=== PATIENT | female | born 1950 | race Caucasian/White ===

== ENCOUNTER 2018-11-28 07:06 | Emergency (ER) | payer MEDICARE, BC ==
[2018-11-28 07:21] VITALS: BP 138/81
--- NOTE | 2018-11-28 08:09 | UC ---
Head Injury HPI - HPI Summary HPI Summary: 68-year-old female comes in with a chief complaint of headache and facial pain and neck pain. Patient suffered an injury on October 30 where she was struck in the face and on the top of the head at her home when doing laundry and the cover of the laundry machine struck her on the face of the head. No loss of consciousness. Primary pain was on the bridge of her nose in the left frontal sinus area and on the top of her head. She's had craniosacral manipulation by her chiropractor and that did help. In the last day pain on top of her head as gotten worse. She's not taken any acetaminophen or ibuprofen. Laying down resting makes it better activity and worrying about it makes it worse. Denies any loss or change in vision or speech or any weakness or numbness. She describes the pain as a pressure and at its worst at about a 7 out of 10 right now it's a 3 out of 10. She does take a baby aspirin every day. Otherwise she' s not on any blood thinners. Patient does have neck pain which she says is fairly chronic condition but she feels it's worse since the injury. - History Of Current Complaint Chief Complaint: UCHeadInjury Stated Complaint: HEAD INJURY Time Seen by Provider: 11/28/18 07:40 Pain Intensity: 3 - Allergies/Home Medications Allergies/Adverse Reactions: Allergies Allergy/AdvReac Type Severity Reaction Status Date / Time No Known Allergies Allergy Verified 11/28/18 07:22 PMH/Surg Hx/FS Hx/Imm Hx Previously Healthy: Yes Endocrine History: Dyslipidemia Cardiovascular History: Hypertension, Myocardial Infarction - Surgical History Surgical History: Yes Surgery Procedure, Year, and Place: right torn meniscus 2000; - Family History Known Family History: Negative: Blood Disorder - Social History Alcohol Use: Daily Alcohol Amount: 1 Glass of wine Daily Substance Use Type: None Smoking Status (MU): Former Smoker - Immunization History Most Recent Influenza Vaccination: never Most Recent Tetanus Shot: 05/2011 Most Recent Pneumonia Vaccination: never Review of Systems All Other Systems Reviewed And Are Negative: Yes Constitutional: Positive: Negative Skin: Positive: Negative Eyes: Positive: Negative ENT: Positive: Other - SEE HPI Respiratory: Positive: Negative Cardiovascular: Positive: Negative Gastrointestinal: Positive: Negative Motor: Positive: Negative Neurovascular: Positive: Negative Musculoskeletal: Positive: Other: - SEE HPI Neurological: Positive: Headache Psychological: Positive: Negative Is Patient Immunocompromised?: No Physical Exam Triage Information Reviewed: Yes Appearance: Well-Appearing, No Pain Distress, Well-Nourished Vital Signs: Initial Vital Signs Temp 98 F 11/28/18 07:18 Pulse 80 11/28/18 07:18 Resp 18 11/28/18 07:18 BP 138/81 11/28/18 07:18 Pulse Ox 100 11/28/18 07:18 Vital Signs Reviewed: Yes Eyes: Positive: Conjunctiva Clear, Other: - PERRLA EOMI. No photophobia. No visual field deficit. ENT: Positive: TMs normal - No hemotympanum, Other - Face is no obvious deformities and is nontender to palpation Neck: Positive: Supple, Other: - Mild tenderness in the midline posterior Respiratory: Positive: Lungs clear, Normal breath sounds, No respiratory distress Cardiovascular: Positive: RRR Musculoskeletal: Positive: Strength Intact, ROM Intact Neurological: Positive: Alert, Muscle Tone Normal, Other: - No focal neurologic deficit Psychological: Positive: Age Appropriate Behavior Skin Exam: Normal Head Injury Course/Dx - Course Course Of Treatment: Patient Name: ALEXANDRIA GOMEZ Medical Record#: [id number] Ordering Physician: Lucius Lovelace MD Acct.#: [id number] : 1950 Age: 68 Sex: F Location: [facility] Exam Date: 11/28/18 075 ADM Status: [facility] ER Order Information: CT SPINE CERVICAL W/O Accession Number: [id number] CPT: [address]: [address] of the cervical spine was obtained in the axial plane. Sagittal and coronal reconstructed images were obtained. The skull base and straight no fracture. Mastoid air cells are well aerated. Degenerative changes of the atlantoaxial joint is noted. The vertebral bodies appear normal in height. Normal bone marrow signal is noted. At C2-C3 there is no disc protrusion. No central or foraminal stenosis is noted. At C3-C4 spondylitic ridge flattens the thecal sac. Right uncovertebral joint hypertrophy narrows the right foramen. At C4-C5 spondylitic ridge flattens the thecal sac. No central or foraminal stenosis is noted. At C5-C6 and C6-C7 degenerative disc disease is noted. Lung apices are unremarkable. No fracture is identified. IMPRESSION: Degenerative disc disease at C3-C4, C4-C5, C5-C6 and C6-C7 without evidence of fracture. Spinal canal appears intact. <Electronically signed by Grace Farrell MD in OV> 11/28/18 0846 Patient Name: ALEXANDRIA GOMEZ Medical Record#: [id number] Ordering Physician: Lucius Lovelace MD Acct.#: [id number] : 1950 Age: 68 Sex: F Location: [facility] Exam Date: 11/28/18750 ADM Status: REG ER Order Information: CT MAXILLOFACIAL W/O Accession Number: [id number] CPT: 50619 INDICATION: Facial trauma. COMPARISON: There are no relevant prior studies available for comparison. TECHNIQUE: Contiguous axial sections of the axial images of the facial bones were obtained and reconstructed in the coronal and sagittal planes. FINDINGS: The rodriguez of the orbits and maxillary sinuses appear intact. The zygomatic arches appear intact. There is no evidence for a fracture of the mandible. The nose is angulated toward the left side. No acute fracture is seen. There is moderate deviation of the nasal septum toward the right side. The pterygoid plates appear intact. The paranasal sinuses appear clear. IMPRESSION: NO EVIDENCE FOR ACUTE FRACTURE. <Electronically signed by Mark Morillo MD in OV> 11/28/18 0849 Patient Name: ALEXANDRIA GOMEZ Medical Record#: [id number] Ordering Physician: Lucius Lovelace MD Acct.#: [id number] : 1950 Age: 68 Sex: F Location: [facility] Exam Date: 11/28/18750 ADM Status: REG ER Order Information: CT BRAIN WO Accession Number: [id number] CPT: 07188 INDICATION: Head trauma COMPARISON: There are no relevant prior studies available for comparison. TECHNIQUE: Contiguous axial sections of the brain were obtained from the skull base to the vertex without contrast. FINDINGS: There is no hemorrhagic focus, mass effect or midline shift. Grossly, the kang- white matter differentiation is maintained. Mild periventricular hypoattenuation, without mass effect, is nonspecific. Mild cerebral volume loss is characterized by generalized ventriculomegaly and sulcal prominence. The basal cisterns are patent. There is no abnormal extra-axial collection. The globes and orbits are unremarkable. The paranasal sinuses and mastoid air cells are predominantly well aerated. IMPRESSION: No acute intracranial abnormality. Mild cerebral volume loss. Mild chronic small vessel ischemic disease is likely. <Electronically signed by Wayne Butcher MD in OV> 11/28/[address] results with the patient. I recommended ibuprofen as directed as needed. Patient will follow-up with her primary care physician. Could also follow up with sports medicine for potential concussion. She is to get reevaluated sooner with any difficulty with vision or speech or any neurologic symptoms unexplained vomiting or any questions or concerns. - Differential Dx/Diagnosis Provider Diagnosis: Concussion, Facial injury, Headache, Neck pain Discharge - Sign-Out/Discharge Documenting (check all that apply): Patient Departure All imaging exams completed and their final reports reviewed: Yes - Discharge Plan Condition: Stable Disposition: HOME Patient Education Materials: Cervical Strain (ED), Concussion (ED), Facial Contusion (ED) Referrals: Sherita Jolley MD [Primary Care Provider] - [facility] [Provider Group] Additional Instructions: FOLLOW UP WITH YOUR DOCTOR. GET RECHECKED SOONER IF YOUR CONDITION WORSENS; WEAKNESS, NUMBNESS, CHANGE IN VISION OR SPEECH, UNEXPLAINED VOMITING, PAIN, YOU FEEL ILL OR ANY QUESTIONS OR CONCERNS. - Billing Disposition and Condition Condition: STABLE Disposition: Home
== END 2018-11-28 09:17 | disposition home or self-care (01) ==
LOC: UCEAST 07:06
DX: S06.0X0A Concussion without loss of consciousness, initial encounter (principal); S09.93XA Unspecified injury of face, initial encounter; W31.89XA Contact with other specified machinery, initial encounter; Y93.E2 Activity, laundry; Y92.018 Other place in single-family (private) house as the place of occurrence of the external cause; Y99.8 Other external cause status; M54.2 Cervicalgia; E78.5 Hyperlipidemia, unspecified; I10 Essential (primary) hypertension; I25.2 Old myocardial infarction; Z87.891 Personal history of nicotine dependence
CPT/HCPCS: 70450; 70486; 72125; 99211; G0463

== ENCOUNTER 2018-12-04 15:23 | Emergency (ER) | payer MEDICARE, BC ==
[2018-12-04 16:19] LABS: ABS Eosinophils 0.1 10^3/ul (0-0.6); ABS Monocytes 0.3 10^3/ul (0-0.8); ABS Neutrophils 2.6 10^3/ul (1.5-7.7); Eosinophil % 0.9 %; Hematocrit 42 % (35-47); Hemoglobin 14.3 g/dL (12.0-16.0); Lymphocyte % 49.7 %; Mean Corpuscular HGB Conc 34 g/dL (31-36); Mean Corpuscular Hemoglobin 31 pg (27-31); Mean Corpuscular Volume 93 fL (80-97); Mean Platelet Volume 9.2 fL (7.4-10.4); Nucleated Red Blood Cells % 0.4; Platelet Count 167 10^3/uL (150-450); Red Blood Count 4.55 10^6 /uL (3.70-4.87); Red Cell Distribution Width 13 % (10-15); White Blood Count 6.1 10^3/uL (3.5-10.8)
--- NOTE | 2018-12-04 16:30 | ED ---
Headache - HPI Summary HPI Summary: This patient is a 68 year old F presenting to ED with a chief complaint of LONDONO since five weeks ago. Patient hit her nose and forehead on the washing machine door five weeks ago and has been having this LONDONO described as pressure/tingling behind her left head since. Today, patient stood up and felt woozy and almost fainted. Patient states when this happened she felt SOB for a second and had bilateral UE tingling/numbness, bilateral LE and UE coldness which has resolved. She also reports chronic left-sided neck pain. Patient sought treatment from a spiritual healer and a chiropractor for her symptoms. At urgent care earlier this week, patient had a CT brain/face/cspine which revealed no abnormalities. The patient rates the pain 4/10 in severity. Symptoms aggravated by movement. Relieved by rest. - History Of Current Complaint Chief Complaint: EDHeadache Stated Complaint: SOB PER PT Time Seen by Provider: 12/04/18 15:53 Hx Obtained From: Patient Onset/Duration: Sudden Onset - Following hitting her head on washing machine, Started weeks ago - 5 weeks, Still Present, Worse Since - [place] "woozy" today Currently Pain Is: Current Pain Scale(0-10)= - 4, Moderate Timing: Constant, Weeks Character: Pressure - Tightness Location of Headache: Other: - Behind left head and eye Aggravating Factor: Position Change - Standing up Allevating Factors: Nothing Associated Signs And Symptoms: Neck Pain, Other (Noted In Comments) - SOB, bilateral UE tingling/numbness, bilateral LE and UE coldness, left-sided neck pain - Allergies/Home Medications Allergies/Adverse Reactions: Allergies Allergy/AdvReac Type Severity Reaction Status Date / Time No Known Allergies Allergy Verified 12/04/18 15:28 PMH/Surg Hx/FS Hx/Imm Hx Endocrine/Hematology History: Denies: Hx Diabetes, Hx Thyroid Disease Cardiovascular History: Reports: Hx Angina, Hx Hypercholesterolemia, Hx Hypertension Denies: Hx Pacemaker/ICD Respiratory History: Denies: Hx Asthma, Hx Chronic Obstructive Pulmonary Disease (COPD) GI History: Denies: Hx Ulcer History: Denies: Hx Renal Disease Musculoskeletal History: Denies: Hx Osteoporosis Sensory History: Denies: Hx Hearing Aid Psychiatric History: Reports: Hx Panic Disorder - Cancer History Hx Chemotherapy: No Hx Radiation Therapy: No - Surgical History Surgery Procedure, Year, and Place: right torn meniscus 2000; - Immunization History Date of Tetanus Vaccine: 2011 Date of Influenza Vaccine: NONE Infectious Disease History: No Infectious Disease History: Denies: Hx Clostridium Difficile, Hx Hepatitis, Hx Human Immunodeficiency Virus (HIV), Hx of Known/Suspected MRSA, Hx Shingles, Hx Tuberculosis, Hx Known/ Suspected VRE, Hx Known/Suspected VRSA, History Other Infectious Disease, Traveled Outside the [place] in Last 30 Days - Family History Known Family History: Negative: Blood Disorder - Social History Alcohol Use: Daily Alcohol Amount: 1 Glass of wine Daily Hx Substance Use: No Substance Use Type: Reports: None Hx Tobacco Use: Yes Smoking Status (MU): Former Smoker Review of Systems Positive: Shortness Of Breath Musculoskeletal: Other - Bilateral UE tingling/numbness, bilateral LE and UE coldness, left-sided neck pain Positive: Headache - Tightness/pressure All Other Systems Reviewed And Are Negative: Yes Physical Exam - Summary Physical Exam Summary: Constitutional: Well-developed, Well-nourished, Alert. (-) Distressed Skin: Warm, Dry HENT: Normocephalic; Atraumatic Eyes: Conjunctiva normal Neck: Musculoskeletal ROM normal neck. (-) JVD, (-) Nuchal rigidity Cardio: Rhythm regular, rate normal, Heart sounds normal; Intact distal pulses; Radial pulses are 2+ and symmetric. (-) Murmur Pulmonary/Chest wall: Effort normal. (-) Respiratory distress, (-) Wheezes, (-) Rales Abd: Soft. (-) Tenderness, (-) Distension, (-) Guarding, (-) Rebound Musculoskeletal: left paraspinal tenderness and posterior occipital tenderness Lymph: (-) Cervical adenopathy Neuro: Alert, PERRL, Oriented x3, Strength normal, Cranial nerves II-XII are grossly intact. SILT, Strength 5/5 BUE and BLE, (-) Dysmetria, (-) Nystagmus, ambulates w steady gait. Psych: Mood and affect Normal Triage Information Reviewed: Yes Vital Signs On Initial Exam: Initial Vitals Temp Pulse Resp BP Pulse Ox 98.9 F 95 18 179/86 100 12/04/18 15:25 12/04/18 15:25 12/04/18 15:25 12/04/18 15:25 12/04/18 15:25 Vital Signs Reviewed: Yes Diagnostics - Vital Signs Vital Signs Temp Pulse Resp BP Pulse Ox 12/04/18 16:00 79 100 12/04/18 15:37 95 148/78 99 12/04/18 15:25 98.9 F 95 18 179/86 100 - Laboratory Lab Results: Lab Results 12/04/18 Range/Units 16:08 WBC 6.1 (3.5-10.8) 10^3/uL RBC 4.55 (3.70-4.87) 10^6 /uL Hgb 14.3 (12.0-16.0) g/dL Hct 42 (35-47) % MCV 93 (80-97) fL MCH 31 (27-31) pg MCHC 34 (31-36) g/dL RDW 13 (10-15) % Plt Count 167 (150-450) 10^3/uL MPV 9.2 (7.4-10.4) fL Neut % (Auto) 43.5 % Lymph % (Auto) 49.7 % Mcdonough % (Auto) 5.4 % Eos % (Auto) 0.9 % Baso % (Auto) 0.5 % Absolute Neuts (auto) 2.6 (1.5-7.7) 10^3/ul Absolute Lymphs (auto) 3.0 (1.0-4.8) 10^3/ul Absolute Monos (auto) 0.3 (0-0.8) 10^3/ul Absolute Eos (auto) 0.1 (0-0.6) 10^3/ul Absolute Basos (auto) 0.0 (0-0.2) 10^3/ul Absolute Nucleated RBC 0.0 10^3/ul Nucleated RBC % 0.4 Result Diagrams: 12/04/18 16:08 12/04/18 16:07 Lab Statement: Any lab studies that have been ordered have been reviewed, and results considered in the medical decision making process. - Radiology CXR Radiology Interpretation Completed By: Radiologist Summary of Radiographic Findings: 1. Stigmata of obstructive lung disease. 2. Stigmata of prior granulomatous disease. 3. No acute pulmonary or cardiac process evident. Dr. Torres has reviewed this radiology report. - EKG 1657 Cardiac Rate: NL - 77 BPM EKG Rhythm: Sinus Rhythm EKG Comparison: No Significant Change Summary of EKG Findings: NSR at 77 BPM, T wave inversions in aVL, LBBB, no change from prior in 2014. Re-Evaluation - Re-Evaluation First Eval Re-Evaluation Time: 17:13 Change: Improved Comment: Patient reports head pressure is feeling better. Patient will be discharged home w dx of cervical strain, headache, and near syncope. Patient understands and agrees with this plan. She has an appointment w her PCP next week. Headache Course/Dx - Course Course Of Treatment: 68 y/o female with recent concussion presents with multiple complaints. Reguarding neck pain and neurologic symptoms, do not suspects neurologic process, do not suspect spinal cord injury such as central cord syndrome patient has no neurologic deficits (including normal strength and sensation). Physical exam w well-appearing female, normal neuro exam, no midline C-spine tenderness, good pulses in feet and hands. Will give fluids and Toradol for symptomatic pain control, check an EKG and chest x-ray as well as labs given near syncope. Syncope. DDx: Seizure: no witnessed seizure activity, incontinence or h/o seizures to suggest seizure today. Hypoxia and hypoglycemia less likely in this patient with normal sats and BG. Cardiac issue : electrical (dysarrhythmias, brugada, WPW, long QT). Less likely given no evidence of drop attack, no palpitations, no EKG findings to predispose to arrhythmias. Old LBBB. No CP, no STEMI on EKG. Neg trop. Mechanical: outflow obstruction like HOCM or aortic stenosis, tamponade-less likely as no murmur, non-exertional, no hypertrophy on EKG. CXR no widened mediastinum. Vessels: PE , dissection, AAA. Clinical picture inconsistent, no abd pain, no pulsatile mass , symmetric pulses, no risk factors of PE. Volume issue: dehydration from vomiting/diarrhea/decreased PO, sepsis. No recent illness. Neuro: no change headache today, no personal or family h/o cerebral aneurysm, nml neuro exam, so this is unlikely ICH. Recent neg CT. Also: vasovagal, drugs/meds, autonomic insufficiency - Diagnoses Provider Diagnoses: Cervical strain, Headache, Fatigue Discharge - Sign-Out/Discharge Documenting (check all that apply): Patient Departure - Discharge Patient Received Moderate/Deep Sedation with Procedure: No - Discharge Plan Condition: Stable Disposition: HOME Patient Education Materials: Cervical Strain (ED), Acute Headache (ED), Post Concussion Syndrome (ED), Near Syncope (ED), Fatigue (ED) Referrals: Sherita Jolley MD [Primary Care Provider] - Additional Instructions: You were seen in the emergency department for headache, neck pain, and feeling unwell. Your prior CT scans did not show any abnormalities in your brain, neck or face. Your EKG today was consistent with your EKG in 2014. Your lab work was unremarkable. If any studies were not completed at the time of discharge you will be called with the relevant results. Please follow up with your primary care doctor in next 2-3 days and return to emergency department for worsening or concerning symptoms. - Billing Disposition and Condition Condition: STABLE Disposition: Home - Attestation Statements Document Initiated by Rickie: Yes Documenting Scribe: Raul Stratton Provider For Whom Rickie is Documenting (Include Credential): Fabi Torres MD Scribe Attestation: IRaul, scribed for Fabi Torres MD on 12/04/18 at 1955. Scribe Documentation Reviewed: Yes Provider Attestation: The documentation as recorded by the Raul ivey accurately reflects the service I personally performed and the decisions made by me, Fabi Torres MD Status of Scribe Document: Viewed
[2018-12-04] MEDS ORDERED: Ketorolac INJ* 30 MG/ML 1 ML VIAL IV ONE (16:32)
[2018-12-04] MEDS ORDERED: NS 0.9% 1000 ML** 1,000 ML IV ONE (16:32)
[2018-12-04 16:38] LABS: Albumin 4.7 g/dL (3.2-5.2); Albumin/Globulin Ratio 1.7 (1-3); BUN/Creatinine Ratio 13.3 (8-20); Calcium 9.6 mg/dL (8.6-10.3); EGFR African American 57.6 (>60); EGFR Non-African American 47.6 (>60); Globulin 2.8 g/dL (2-4); Potassium 3.5 mmol/L (3.5-5.0); Total Bilirubin 0.6 mg/dL (0.2-1.0); Total Protein 7.5 g/dL (6.4-8.9)
[2018-12-04 18:30] VITALS: BP 128/80
== END 2018-12-04 18:31 | disposition home or self-care (01) ==
LOC: ED 15:23
DX: S16.1XXA Strain of muscle, fascia and tendon at neck level, initial encounter (principal); W22.8XXA Striking against or struck by other objects, initial encounter; Y92.9 Unspecified place or not applicable; R51 Headache; R53.83 Other fatigue; R06.02 Shortness of breath; R20.0 Anesthesia of skin; I44.7 Left bundle-branch block, unspecified; R55 Syncope and collapse; I10 Essential (primary) hypertension; Z87.891 Personal history of nicotine dependence
CPT/HCPCS: 36415; 71046; 80053; 84484; 85025; 93005; 96374; 99283; J1885

== ENCOUNTER 2022-10-18 10:28 | Inpatient (IN) ==
[2022-10-18 11:41] LABS: ABS Lymphocytes 2.5 10^3/uL (1.0-4.8); ABS Monocytes 0.2 10^3/uL (0.0-0.9); ABS Neutrophils 2.2 10^3/uL (1.5-7.6); ABS Nucleated RBC 0.03 10^3/ul; Eosinophil % 0.2 %; Hematocrit 38.9 % (35-45); Hemoglobin 13.4 g/dL (11.5-14.3); Lymphocyte % 49.8 %; Mean Corpuscular Hemoglobin 31.9 pg (27-33); Mean Corpuscular Hgb Conc 34.4 g/dL (31-36); Mean Corpuscular Volume 92.9 fL (80-97); Mean Platelet Volume 9.2 fL (7.5-11.2); Nucleated Red Blood Cells % 0.5 /100 WBC (0.0-0.4); Platelet Count 160 10^3/uL (150-450); Red Blood Count 4.19 10^6/uL (3.63-4.92); Red Cell Distribution Width 13.1 % (12-17)
[2022-10-18 11:57] LABS: Albumin 4.4 g/dL (3.2-5.2); Albumin/Globulin Ratio 1.7 (1-3); Calcium 9.1 mg/dL (8.6-10.3); Creatinine, Serum 0.84 mg/dL (0.51-0.95); Globulin 2.6 g/dL (2-4); Potassium 3.7 mmol/L (3.5-5.0); Total Bilirubin 0.5 mg/dL (0.2-1.0); eGFR CKD-EPI 72.9 (>60)
[2022-10-18 11:59] LABS: INR 0.98 (0.88-1.18)
[2022-10-18 13:07] LABS: Urine Appearance Clear; Urine Bilirubin Negative (Negative); Urine Blood Negative (Negative); Urine Color Yellow; Urine Glucose Negative (Negative); Urine Ketones Negative (Negative); Urine Nitrite Negative (Negative); Urine Protein Negative (Negative); Urine Specific Gravity 1.004 (1.002-1.030); Urine Urobilinogen Negative (Negative)
[2022-10-18 13:17] LABS: High Sensitivity Troponin 1 Hr 62 pg/mL (<15)
[2022-10-18] MEDS ORDERED: Iohexol 350 (CONTRAST) 500 ML MDV IV ONE (13:48)
[2022-10-18] MEDS ORDERED: Fluticasone NASAL SPRAY 50MCG 16 gm SPRAY BTL INTRANASAL PRN (15:29)
[2022-10-18] MEDS ORDERED: Heparin DRIP 25,000 UNITS BAG 25,000 UNITS/500 ML BAG IV SCH (15:30)
[2022-10-18] MEDS: Aspirin EC 81 mg TAB.EC (enteric coated) PO SCH (15:52)
[2022-10-18] MEDS ORDERED: Heparin 5000 UNITS/ML 1 mL VIAL IV SCH (16:00)
[2022-10-18] MEDS: Nitro 2% OINT (Nitroglycerin) 1 INCH/PAK TOPICAL SCH (16:01)
[2022-10-19 04:16] LABS: ABS Lymphocytes 3.3 10^3/uL (1.0-4.8); ABS Monocytes 0.3 10^3/uL (0.0-0.9); ABS Neutrophils 2.3 10^3/uL (1.5-7.6); ABS Nucleated RBC 0.01 10^3/ul; Eosinophil % 0.6 %; Hematocrit 37.1 % (35-45); Hemoglobin 12.7 g/dL (11.5-14.3); Lymphocyte % 55.3 %; Mean Corpuscular Hemoglobin 32.3 pg (27-33); Mean Corpuscular Hgb Conc 34.2 g/dL (31-36); Mean Corpuscular Volume 94.4 fL (80-97); Mean Platelet Volume 9.3 fL (7.5-11.2); Nucleated Red Blood Cells % 0.2 /100 WBC (0.0-0.4); Platelet Count 151 10^3/uL (150-450); Red Blood Count 3.93 10^6/uL (3.63-4.92); Red Cell Distribution Width 13.3 % (12-17)
[2022-10-19] MEDS ORDERED: Sulfur Hexaflouride MICROSPHR 25 MG VIAL ONE (07:51)
[2022-10-19] MEDS: Nitro 2% OINT (Nitroglycerin) 1 INCH/PAK TOPICAL SCH ×2 (09:19→13:49)
[2022-10-19] MEDS: Aspirin EC 81 mg TAB.EC (enteric coated) PO SCH (09:20)
[2022-10-19] MEDS ORDERED: Regadenoson 0.4 MG/5 ML SYRINGE ONE (10:26)
[2022-10-20 06:05] LABS: ABS Eosinophils 0.1 10^3/uL (0.0-0.5); ABS Lymphocytes 3.2 10^3/uL (1.0-4.8); ABS Monocytes 0.4 10^3/uL (0.0-0.9); ABS Nucleated RBC 0.01 10^3/ul; Eosinophil % 1.1 %; Hematocrit 35.6 % (35-45); Hemoglobin 12.3 g/dL (11.5-14.3); Lymphocyte % 55.7 %; Mean Corpuscular Hemoglobin 32.4 pg (27-33); Mean Corpuscular Hgb Conc 34.5 g/dL (31-36); Mean Platelet Volume 9.3 fL (7.5-11.2); Nucleated Red Blood Cells % 0.1 /100 WBC (0.0-0.4); Platelet Count 150 10^3/uL (150-450); Red Blood Count 3.79 10^6/uL (3.63-4.92); Red Cell Distribution Width 13.2 % (12-17); White Blood Count 5.7 10^3/uL (3.8-11.8)
[2022-10-20 06:29] LABS: Calcium 8.2 mg/dL (8.6-10.3); Creatinine, Serum 0.83 mg/dL (0.51-0.95); Potassium 3.7 mmol/L (3.5-5.0); eGFR CKD-EPI 73.9 (>60)
[2022-10-20 10:38] VITALS: BP 124/76
[2022-10-20] MEDS: Nitro 2% OINT (Nitroglycerin) 1 INCH/PAK TOPICAL SCH (10:47)
[2022-10-20] MEDS: Aspirin EC 81 mg TAB.EC (enteric coated) PO SCH (10:47)
[2022-10-22 19:37] LABS: IgG Immunoblot Negative (Negative); IgM Immunoblot Positive (Negative)
== END 2022-10-20 14:15 | disposition home or self-care (01) | DRG 69 ==
LOC: ED 10:28 → EDHOLD 14:58 → SUATTDRO 14:58 → MEDTELE 17:37
PROVIDERS: ADMIT Nurse Practitioner Family; ATTEND Internal Medicine